=== PATIENT | female | born 2000 | race Caucasian/White ===

== ENCOUNTER 2025-01-18 14:23 | Inpatient (IN) | payer OTHER ==
[~2025-01-18] VITALS: Ht 152.4 cm; Wt 61.8 kg
[2025-01-18 16:15] LABS: PLATELET COUNT (AUTO) 466 K/uL (150-450); RED BLOOD CELL COUNT(AUTO) 3.30 MIL/uL (4.00-5.20); RED CELL DISTRIBUTION WIDTH 13.4 % (11.5-14.5); WHITE BLOOD COUNT (AUTO) 11.8 K/uL (4.5-11.0)
[2025-01-18 16:24] LABS: CALCIUM, TOTAL 8.7 mg/dL (8.8-10.5); CREATININE 0.64 mg/dL (0.60-1.30); GLOMERULAR FILTR. RATE CALC > 60 mL/min (>60); GLUCOSE,RANDOM 95 mg/dL (70-110); SODIUM SERUM 143 mmol/L (136-145); UREA NITROGEN, BLOOD 9 mg/dL (7-18)
[2025-01-18 18:41] VITALS: BP 109/74; PULSE 63; RESP 18; TEMP 98.1; O2SAT 98
[2025-01-18] MEDS ORDERED: ONDANSETRON HCL 4 MG/2 ML VIAL IVP PRN (19:45)
[2025-01-18] MEDS ORDERED: ACETAMINOPHEN 325 MG TABLET PO PRN (19:45)
[2025-01-18] MEDS ORDERED: MORPHINE SULFATE 2 MG/ML SYRINGE IVP PRN (19:45)
[2025-01-18] MEDS ORDERED: ZOLPIDEM TARTRATE 5 MG TABLET PO PRN (19:45)
[2025-01-18] MEDS ORDERED: BISACODYL 10 MG RECTAL RECTAL SUPPOSITORY PR PRN (19:45)
[2025-01-18 20:00] VITALS: BP 139/97; PULSE 67; RESP 18; TEMP 98.1; O2SAT 99
[2025-01-18] MEDS: DOCUSATE SODIUM 100 MG CAPSULE PO SCH (20:00)
[2025-01-18] MEDS: HYDROCODONE/ACETAMINOPHEN 5-325 MG TABLET PO PRN (20:01)
[2025-01-18] MEDS ORDERED: SODIUM CHLORIDE 0.9% 500 ML IV ONE (20:56)
[2025-01-18] MEDS: VANCOMYCIN HCL 1.25 GM in DEXTROSE 5%-WATER 250 ML IV ONE (21:06)
[2025-01-18] MEDS: HEPARIN SODIUM,PORCINE 5,000 UNITS/ML VIAL SQ SCH (23:25)
[2025-01-19 05:31] VITALS: BP 110/66; PULSE 66; RESP 18; TEMP 97.7; O2SAT 98
[2025-01-19 07:02] LABS: APPEARANCE,URINE CLEAR (CLEAR); GLUCOSE, URINE (UA) NEGATIVE (NEGATIVE); LEUKOCYTE ESTERASE ,URINE NEGATIVE (NEGATIVE); NITRATE,URINE NEGATIVE (NEGATIVE); OCCULT BLOOD,URINE NEGATIVE (NEGATIVE); PH,URINE DRUG SCREEN 6.5 (5.0-8.0); SPECIFIC GRAVITIY, URINE 1.018 (1.003-1.030)
[2025-01-19 07:12] LABS: SQUAMOUS EPITHELIAL CELL,UR Moderate /LPF (None Seen)
[2025-01-19 07:15] LABS: ALCOHOL, URINE DRUG SCREEN NEGATIVE (NEGATIVE); AMPHET/METH SCREEN,URINE NEGATIVE (NEGATIVE); BARBITURATE SCREEN, URINE NEGATIVE (NEGATIVE); CANNABINOID SCREEN,URINE POSITIVE (NEGATIVE); COCAINE SCREEN,URINE NEGATIVE (NEGATIVE); METHADONE SCREEN, URINE NEGATIVE (NEGATIVE)
[2025-01-19 08:19] VITALS: BP 119/82; PULSE 88; RESP 18; TEMP 98.2; O2SAT 100
[2025-01-19] MEDS: VANCOMYCIN HCL 1 GM in DEXTROSE 5%-WATER 250 ML IV SCH (08:52)
[2025-01-19] MEDS: PANTOPRAZOLE SODIUM 40 MG DR TABLET PO SCH (08:53)
[2025-01-19] MEDS: CEPHALEXIN MONOHYDRATE 500 MG CAPSULE PO SCH (15:30)
[2025-01-19] MEDS: SULFAMETHOX/TRIMETH DS 800-160 MG/TABLET PO SCH (20:07)
[2025-01-19 20:29] VITALS: BP 128/75; PULSE 64; RESP 18; TEMP 97.9; O2SAT 98
[2025-01-20 05:44] VITALS: BP 102/65; PULSE 62; RESP 18; TEMP 97.5; O2SAT 100
[2025-01-20 07:12] LABS: PLATELET COUNT (AUTO) 468 K/uL (150-450); RED BLOOD CELL COUNT(AUTO) 3.17 MIL/uL (4.00-5.20); RED CELL DISTRIBUTION WIDTH 14.0 % (11.5-14.5); WHITE BLOOD COUNT (AUTO) 9.1 K/uL (4.5-11.0)
[2025-01-20 07:20] LABS: CALCIUM, TOTAL 8.4 mg/dL (8.8-10.5); CREATININE 0.82 mg/dL (0.60-1.30); GLOMERULAR FILTR. RATE CALC > 60 mL/min (>60); GLUCOSE,RANDOM 95 mg/dL (70-110); SODIUM SERUM 141 mmol/L (136-145); UREA NITROGEN, BLOOD 9 mg/dL (7-18)
[2025-01-20 08:03] VITALS: BP 120/55; PULSE 73; RESP 18; TEMP 98.1; O2SAT 100
[2025-01-20 19:30] VITALS: BP 123/75; PULSE 66; RESP 18; TEMP 98.2; O2SAT 97
[2025-01-21 03:07] VITALS: BP 115/60; PULSE 60; RESP 18; TEMP 98.1; O2SAT 97
[2025-01-21] MEDS: MAGNESIUM HYDROXIDE SUSPENSION 30 ML UDCUP PO PRN (06:05)
[2025-01-21 08:50] VITALS: BP 123/75; PULSE 65; RESP 18; TEMP 98; O2SAT 100
[2025-01-21 20:17] VITALS: BP 134/81; PULSE 69; RESP 20; TEMP 97.9; O2SAT 100
[2025-01-22 04:06] VITALS: BP 119/81; PULSE 63; RESP 18; TEMP 97.5; O2SAT 100
[2025-01-22 08:00] VITALS: BP 114/68; PULSE 64; RESP 20; TEMP 98.2; O2SAT 100
[2025-01-22] MEDS ORDERED: SULF-261 PO (13:12)
[2025-01-22] MEDS ORDERED: CEPH-558 PO (13:13)
[2025-01-22] MEDS ORDERED: NEOM1OIN8 TP (13:17)
[2025-01-22] MEDS: NEOMYCIN/BACITRACIN/POLYMYXIN B 30 GM OINTMENT TP SCH (15:22)
[2025-01-22 19:52] VITALS: BP 105/56; PULSE 64; RESP 18; TEMP 97.9; O2SAT 99
[2025-01-23 04:01] VITALS: BP 114/79; PULSE 64; RESP 18; TEMP 97.2; O2SAT 100
== END 2025-01-23 09:19 | DRG 950 ==
LOC: EMS 14:57 → EDH 16:42 → 6N 18:32
PROVIDERS: ADMIT Internal Medicine; ATTEND Internal Medicine
PROC: 0XP Anatomical Regions, Upper Extremities, Removal (ICD-10-PCS; principal; 2025-01-21)
PROC: 0WP Anatomical Regions, General, Removal (ICD-10-PCS; 2025-01-21)
PROC: 0XP Anatomical Regions, Upper Extremities, Removal (ICD-10-PCS; 2025-01-21)
DX: Z48.1 Encounter for planned postprocedural wound closure (principal); D64.9 Anemia, unspecified; D72.829 Elevated white blood cell count, unspecified; R58 Hemorrhage, not elsewhere classified
CPT/HCPCS: 80048; 80202; 80307; 81001; 84703; 85025; 99285; G0480; J1644; J3373; J7040; J7060